=== PATIENT | male | born 1990 | race Caucasian/White ===

== ENCOUNTER 2018-03-15 23:39 | Emergency (ER) | payer OTHER ==
--- NOTE | 2018-03-15 23:41 | PDOC ---
History of Present Illness - General Chief Complaint: Rash Stated Complaint: RASH SINCE THURSDAY Time Seen by Provider: 03/15/18 23:40 History Source: Patient Exam Limitations: No Limitations - History of Present Illness Initial Comments: 03/15/18 23:46 This is 27-year-old male who comes in complaining of an itchy rash to his extremities 3 days. Patient did not take anything for the rash. Patient denies any new lotion screams ointments or foods. Patient is otherwise healthy. Patient denies any shortness of breath or any other associated symptoms. Allergies: None Past Medical History: none Social history: Lives with family. No smoking. No alcohol. No illicit drugs. Surgical history: None General: No fevers or chills, no weakness, no weight loss HEENT: No change in vision. No sore throat,. No ear pain CardioVascular: no chest discomfort. No shortness of breath Respiratory:No cough, or wheezing. Gastrointestinal: no nausea, vomiting, diarrhea or constipation, No rectal bleeding Genitourinary: No dysuria, hematuria, or frequency Musculoskeletal: No joint or muscle pain or swelling Neurologic: No headache, vertigo, dizziness or loss of consciousness Psychiatric: nor depression Skin: + rashes no easy bruising Endocrine: no increased thirst or abnormal weight change Allergic: no skin or latex allergy All other systems reviewed and normal GENERAL: The patient is awake, alert, and fully oriented, in no acute distress. HEAD: Normal with no signs of trauma. EYES: Pupils equal, round and reactive to light, extraocular movements intact, sclera anicteric, conjunctiva clear. EXTREMITIES:atraumatic, Normal range of motion, no edema. NEUROLOGICAL: Normal speech, normal gait. PSYCH: Normal mood, normal affect. SKIN: Warm, Dry, normal turgor, + rashes fine papular rash, there is no increase in warmth, there is no discharge or lesions noted. Assessment plan: This is a 27-year-old male who comes in complaining of a rash. Patient's rashes and ALLERGIC dermatitis. It is uncertain as to what the source is however patient was given penicillin and Benadryl and discharged home with a prescription for Medrol Dosepak. Past History - Past Medical History Allergies/Adverse Reactions: Allergies Allergy/AdvReac Type Severity Reaction Status Date / Time Penicillins Allergy Verified 01/14/19 23:40 - Suicide/Smoking/Psychosocial Hx Smoking History: Never smoked Hx Alcohol Use: Yes (occasionally) Substance Use Type: Alcohol *DC/Admit/Observation/Transfer Diagnosis at time of Disposition: Allergic dermatitis - Discharge Dispostion Disposition: HOME Condition at time of disposition: Stable Decision to Admit order: No - Referrals - Patient Instructions Additional Instructions: Take the Medrol Dosepak as prescribed by the pack. In addition to that if you have further itching U can take Benadryl one tablet as often as every 4-6 hours. Follow-up with a tripe scraper given not better in a couple of days if you're better in a couple of days but symptoms returned follow-up with a tripe scraper as well. Return to the emergency department immediately with ANY new, persistent or worsening symptoms. Continue any medications as previously prescribed by your physician. You should follow up with your primary doctor as soon as possible regarding today's emergency department visit. . Please make sure your doctor reviews the results of your emergency evaluation. Thank you for coming to the Emergency Department today for your care. It was a pleasure to see you today. Please note that your evaluation is INCOMPLETE until you follow-up with your doctor. - Post Discharge Activity
[2018-03-15] MEDS ORDERED: diphenhydrAMINE HCL 50 MG CAPSULE PO ONE (23:44)
[2018-03-15] MEDS ORDERED: predniSONE 20 MG TABLET (UD) PO ONE (23:44)
[2018-03-15 23:47] VITALS: BP 122/75; PULSE 60; TEMP 97.9; BMI 32.3
[2018-03-15] MEDS ORDERED: diphenhydrAMINE HCL 50 MG CAPSULE ONE (23:48)
[2018-03-15] MEDS ORDERED: predniSONE 20 MG TABLET (UD) ONE (23:48)
== END 2018-03-15 23:52 | disposition home or self-care (01) ==
LOC: FER 23:39
DX: L23.9 Allergic contact dermatitis, unspecified cause (principal)
CPT/HCPCS: 99281-25